=== PATIENT | male | born 1960 | race Caucasian/White ===

== ENCOUNTER 2018-03-04 16:15 | Inpatient (IN) ==
[2018-03-04] MEDS ORDERED: Heparin 10,000 UNITS/10 ML Vial (for IV use) IV.PUSH STA (16:17)
--- NOTE | 2018-03-04 16:28 | ED ---
HPI General Stated Complaint: Stemi Alert Time Seen by Provider: 03/04/18 16:16 Source: patient and EMS Mode of arrival: EMS Limitations: no limitations History of Present Illness HPI narrative: 57-year-old male patient presents to the ER today brought in by EMS, STEMI alert called on the way, he apparently was working out at the gym when he started having substernal chest pains which she currently rates he initially rated at a 9 out of 10. They had given him aspirin nitroglycerin and he is currently rating the chest pain at a 2 out of 10 now. He denies any shortness of breath or other symptoms.He denies any previous problems with the heart or previous chest pains. Related Data Allergies Allergy/AdvReac Type Severity Reaction Status Date / Time No Known Allergies Allergy Unverified 03/04/18 16:17 Review of Systems ROS: all other systems reviewed are negative [facility] Medical History Medical History FH: cholecystectomy (Acute) GERD (gastroesophageal reflux disease) (Acute) HTN (hypertension) (Acute) Social History Social History Recent Travel in [facility] within the Last 8 Weeks: No Recent Out of Country Travel within the Last 8 Weeks: No Exam Narrative Exam Narrative: GENERAL: Well-developed middle-age male patient currently in mild distress. Awake and oriented x3. SKIN: Focused skin assessment warm/dry. HEAD: Atraumatic. Normocephalic. EYES: Pupils equal and round. No scleral icterus. No injection or drainage. ENT: No nasal bleeding or discharge. Mucous membranes pink and moist. NECK: Trachea midline. No JVD. CARDIOVASCULAR: Regular rate and rhythm. No murmur appreciated.Pulses are present and equal bilaterally. RESPIRATORY: No accessory muscle use. Clear to auscultation. Breath sounds equal bilaterally. GASTROINTESTINAL: Abdomen soft, non-tender, nondistended. Hepatic and splenic margins not palpable. MUSCULOSKELETAL: No obvious deformities. No clubbing. No cyanosis. No edema. NEUROLOGICAL: Awake and alert. No obvious cranial nerve deficits. Motor grossly within normal limits. Normal speech. PSYCHIATRIC: Appropriate mood and affect; insight and judgment normal. Medical Decision Making MDM Narrative Medical decision making narrative: EKG is notable for ST elevations in the inferior leads and V6. ST depressions are seen in V1 through V4. This is fairly concerning for an inferior KS. STEMI protocol was initiated in the ER. Heparin was initiated. Case is discussed with Dr. Mabry who accepts the patient for catheterization. Patient admitted to him as well. Medical Screen Exam Complete: Yes Emergency Medical Condition: Yes Differential Diagnosis Differential Diagnosis: STEMI alert Discharge Plan Discharge Details Anticipated Discharge Date: 03/04/18 Physicians Team ED Provider: Shari Sethi Primary Care Provider: UNKNOWN, Status ED Status: With Doctor
[2018-03-04] MEDS ORDERED: Heparin/NS PF Inj 1,500 ML ONE (16:29)
[2018-03-04] MEDS ORDERED: fentaNYL Citrate Inj 100 MCG/2 ML Ampul ONE (16:30)
[2018-03-04] MEDS ORDERED: Sod Chloride 0.9% Inj 1,000 ML IV.SIG SCH (16:30)
[2018-03-04] MEDS ORDERED: Heparin 10,000 UNITS/10 ML Vial (for IV use) ONE (16:30)
--- NOTE | 2018-03-04 16:32 | XR ---
EXAM DATE: 03/04/2018 4:17 PM EDT AGE/SEX: 57 years / Male INDICATIONS: Chest pain, STEMI alert. CLINICAL DATA: This is the patient's initial encounter. Patient reports that signs and symptoms have been present for 1 day and indicates a pain score of 1/10. MEDICAL/SURGICAL HISTORY: None. None. COMPARISON: No prior exams available for comparison. FINDINGS: A single AP view of the chest demonstrates the lungs to be symmetrically aerated without evidence of mass, infiltrate or effusion. Heart enlarged. Mediastinum is prominent. The cardiomediastinal contour s are unremarkable. Osseous structures are intact. CONCLUSION: 1. Cardiomegaly. 2. Mediastinum is prominent. Consider contrasted CT chest. Electronically signed by: Dashawn Queen MD 03/04/2018 4:31 PM EDT
[2018-03-04 16:43] LABS: Baso % (Auto) 0.5 % (0.0-2.0); Eos # (Auto) 0.1 th/mm3 (0.0-0.4); Eos % (Auto) 0.7 % (0.0-4.0); Hematocrit 55.8 % (39.0-51.0); Hemoglobin 19.4 gm/dL (13.0-17.0); Lymph # (Auto) 1.8 th/mm3 (1.0-4.8); Lymph % (Auto) 25.6 % (9.0-44.0); Mean Corpuscular HGB Conc 34.9 % (32.0-36.0); Mean Corpuscular Hemoglobin 29.8 pg (27.0-34.0); Mean Corpuscular Volume 85.6 fL (80.0-100.0); Mono # (Auto) 0.6 th/mm3 (0.0-0.9); Mono % (Auto) 8.6 % (0.0-8.0); Neut # (Auto) 4.5 th/mm3 (1.8-7.7); Neut % (Auto) 64.6 % (16.0-70.0); Platelet Count 179 th/mm3 (150-450); Red Blood Count 6.52 mil/mm3 (4.50-5.90); Red Cell Distribution Width 14.1 % (11.6-17.2); White Blood Count 6.9 th/mm3 (4.0-11.0)
[2018-03-04 17:04] LABS: Activated Partial Thrombo Time 20.2 sec (24.3-30.1); Calcium 8.1 mg/dL (8.5-10.1); INR 1.1 Ratio; Prothrombin Time 11.1 sec (9.8-11.6)
[2018-03-04] MEDS ORDERED: Tirofiban Inj 12,500 MCG/250 ML PLAST..BAG ONE (17:26)
[2018-03-04] MEDS ORDERED: Iohexol 350 MG/ML 100 ML Vial (for Cath Lab) IVCONTRAST ONE (17:30)
[2018-03-04] MEDS ORDERED: Iohexol 350 MG/ML 50 ML Vial (for Cath Lab) IVCONTRAST ONE (17:30)
[2018-03-04 17:38] LABS: Creatine Kinase MB 26.3 ng/mL (0.5-3.6)
[2018-03-04] MEDS ORDERED: Misc Info for Pharmacy OTHER STA (17:44)
[2018-03-04] MEDS ORDERED: TIROFIBAN BOLUS IV.PUSH ONE (17:44)
--- NOTE | 2018-03-04 17:49 | CATHPROC ---
[facility] HIS Report Study Information Study Number Admission Scheduled Start Study Start [id number] Mar 04 2018 4:15PM 03/04/2018 Mar 04 2018 4:31PM [place] [facility] Cardiac Catheterization Admit Source Facility Department Emergency department [facility] Physician and Clinical Staff Initial Adrian Welsh Hand Blockerjacob Mark RN, Milton Carlton,RN Recorder Kathleen Best,RT(R) Scrub Lelo Holloway ,RT(R) Procedures Performed Procedure Location (Site) Vessel Name Coronary Angiograms LCA Left Coronary Coronary Angiograms RCA Right Coronary L Heart Cath LV Gram-hand inj. LV LV Ventricle PTCA ADD ON'S Stent OM2 Prox CIRC Stent RCA Mid Right Coronary Wire insertion Fem Art (right) Femoral Art Equipment Time Departmental Shipping Clerk Description Size Mfg Part Number Used/Scraped [id number] 17:02 [employer] WIRE, ASAHI PROWATER 180CM 180CM Used *[id number] 17:14 [employer] WIRE, ASAHI PROWATER 180CM 180CM Used *[id number] TRANSDUCER, TRUWAVE [id number] 16:33 SUH TRAVIS * Used W/STOCKCOCK *[id number] [id number] *[id number] 538-422 *[id number] *[id number] [id number] *[id number] *[id number] 16:33 [employer] INDUSTRIES BLANKET,WARM AIR CCL * Used *[id number] 16:33 [employer] PACK, CCL CUSTOM * Used *[id number] 16:33 MEDLINE PACER PEN, SKIN DUAL W/ RULER * Used *[id number] 17:22 MEDTRONIC STENT, 3.0 22 INTEGRITY 3.0 22 Used *[id number] 17:05 [employer]TRONIC STENT, 4.0 15 INTEGRITY 4.0 15 Used *[id number] 17:05 [employer] MEDICAL 30 RAVEN INDEFLATOR Used *[id number] 16:57 [employer] MEDICAL SHEATH, FR6.5 PRELUDE 11CM FR 6.5 038ACT Used *[id number] 16:33 [employer] MEDICAL WIRE, 3MMJ .035 180CM 180CM Used *[id number] 16:33 [facility], 4 PORT * Used *[id number] 16:33 [employer] OMNIPAQUE, 350 MG, 150ML 150ML [id number] Used 17:05 [employer]COMED OMNIPAQUE, 350 MG, 50ML 50ML [id number] Used [id number] 16:33 TERUM[employer] MEDICAL SHEATH, FR4 TERUMO (10CM) FR 4 Used *[id number] Equipment Model, Serial, Lot Number and Expiration Data Description Model Number Serial Number Lot Number Expiration Date STENT, 3.0 22 INTEGRITY [id number] 12-15-2018 STENT, 4.0 15 INTEGRITY [id number] 02-21-2019 History: Allergies Allergy Reaction No Known Allergies History: Risk Factors Hypertension Yes History: Symptoms/Diagnosis Selection Items Chest pain History: Stress Tests Stress or Imaging Studies Performed No Labs Hgb (g/dl) Hct (%) RBC (MIL/MM3) WBC (l/cumm) Platelets (thousands) 11.60-17.00 35.00-51.00 4.00-5.90 4.00-11.00 150.00-450.00 19.7 58 6.5 69 179 Glucose (mg/dl) BUN (mg/dl) Creatinine (mg/dl) BUN:Creatinine (1:x) 74.00-106.00 7.00-18.00 0.50-1.30 10.00-20.00 130 16 1.2 13.3 Na (meq/l) K (meq/l) Cl (meq/l) 136.00-145.00 3.50-5.10 98.00-107.00 141 3.5 101 CPK-MB (ng/ML) 0.50-3.60 Not Drawn Medication Medication Total Dose (Bolus/Oral) Medication Total Dosage/Unit 1% XYLOCAINE 20 mL AGGRASTAT BOLUS 46 meq/kg EFFIENT 60 mg FENTANYL 50 mcg HEPARIN 6900 units VERSED 2 mg Medications (Bolus/Oral) Medication Time Given Dosage/Unit Administered By Reason VERSED 03/04/2018 4:58:53 PM 1 mg Milton Kaplan 1 mg VERSED given in lab by Milton Kaplan RN in Left Antecubital via Peripheral IV. 1% XYLOCAINE 03/04/2018 4:59:23 PM 20 mL Adrian Mabry 20 mL 1% XYLOCAINE given in lab by Adrian Mabry in Right Groin via Subcutaneous. FENTANYL 03/04/2018 4:59:30 PM 25 mcg Rosaura, Milton 25 mcg FENTANYL given in lab by Milton Kaplan RN in Left Antecubital via Peripheral IV. VERSED 03/04/2018 5:00:58 PM 1 mg Milton Kaplan 1 mg VERSED given in lab by Milton Kaplan RN via Peripheral IV. FENTANYL 03/04/2018 5:01:03 PM 25 mcg Rosaura, Milton 25 mcg FENTANYL given in lab by Milton Kaplan RN via Peripheral IV. HEPARIN 03/04/2018 5:06:17 PM 5400 units Rosaura, Milton 5400 units HEPARIN given in lab by Milton Kaplan RN via Peripheral IV. HEPARIN 03/04/2018 5:18:40 PM 1500 units Rosaura, Milton 1500 units HEPARIN given in lab by Milton Kaplan RN via Peripheral IV. AGGRASTAT BOLUS 03/04/2018 5:30:34 PM 46 meq/kg Milton Kaplan 46 meq/kg AGGRASTAT BOLUS given in lab by Milton Kaplan RN via Peripheral IV. Amount given = 4181.4 m eq. EFFIENT 03/04/2018 5:31:59 PM 60 mg David Mark RN 60 mg EFFIENT given in lab by David Mark RN via Oral. Medication (Drip) Medication Time Given Dosage/Unit Concentration/Unit Diluent (ml) Solution AGGRASTAT DRIP 03/04/2018 5:34:44 PM 0.149 mcg/kg/min 12.5 mg 250 NaCl .9 0.149 mcg/kg/min AGGRASTAT DRIP given in lab by Milton Kaplan RN via Peripheral IV. Pump/Drip Flow = 16.3 ml/hr using NaCl .9 with a concentration of 12.5 mg in 250 ml. Ordered by Adrian Mabry. IV Bolus 03/04/2018 5:13:44 PM 250 mL (Bolus) 250 NaCl .9 250 mL (Bolus) IV Bolus given in lab by Milton Kaplan RN via Peripheral IV. Using NaCl .9. IV Solutions 03/04/2018 4:43:25 PM 0 mL (IV) 1000 NaCl .9 Patient arrived on IV Solutions in Left Antecubital via Peripheral IV. Pump/Drip Flow = 20 ml/hr usin g NaCl .9. Initial Case Assessment Cardiovascular HR Rhythm NIBP Chest Pain 90 reg 153/92 0 Edema Present Skin color Skin None Normal Warm Circulatory - Right Pulses Dorsalis Pedis Femoral 3 3 Scale (0,1,2,3,4,d) Circulatory - Left Pulses Dorsalis Pedis Femoral 3 3 Scale (0,1,2,3,4,d) Circulatory - Lower Extremities Color Lower Right Color Lower Left Normal Normal Neurological State Oriented to time-place- Alert Moves all extremities person Respiration - General Respiration Rate SpO2 (%) O2 (lpm) (B/min) 19 95 0 Final Case Assessment Cardiovascular HR Rhythm NIBP Chest Pain 71 reg 129/82 0 Edema Present Skin color Skin None Normal Warm Circulatory - Right Pulses Dorsalis Pedis Femoral 3 3 Scale (0,1,2,3,4,d) Circulatory - Left Pulses Dorsalis Pedis Femoral 3 3 Scale (0,1,2,3,4,d) Circulatory - Lower Extremities Color Lower Right Color Lower Left Normal Normal Neurological State Oriented to time-place- Alert Moves all extremities person Respiration - General Respiration Rate SpO2 (%) O2 (lpm) (B/min) 13 97 0 Chronological Log Time Study Chronological Log 16:25:30 Emergency Room notified that [facility] is ready. 16:36:54 Patient Name, D.O.B, / Armband Verified By R.N. 16:37:41 Pre-op and post- op instructions given; patient acknowledges understanding of instructions. 16:37:43 Verbal Stimulation=2 Physical Stimulation=2 Airway=2 Respiration=2 TOTAL=8. (0=absent, 1=li mited, 2=present) 16:37:53 Patient arrived via Bed. 16:38:03 Skin Breakdown-none 16:38:10 A # 20 IV was noted in the Forearm (right). Grade = 0 Vitals capture started with the following parameters, Patient=Adult, Interval=5 min, Initial Pr hljpcc=797 mmHg, 16:41:02 Deflation Rate=5 mmHg, Cuff placed on Left Arm 16:42:04 Vitals capture stopped. 16:43:18 A # 18 IV was noted in the Antecubital (left). Grade = 0 16:43:25 Patient arrived on IV Solutions in Left Antecubital via Peripheral IV. Pump/Drip Flow = 20 ml/hr using NaCl .9. 16:43:51 HR=94 bpm, MGTG=263/89 mmhg, SpO2=95.0 %, Resp=16 B/min, Pain=0, Julio=10, Roth=2 16:43:54 Reference ECG taken 16:46:10 Pressure channel 1 zeroed. 16:47:56 HR=91 bpm, HJVV=068/92 mmhg, SpO2=95.0 %, Resp=20 B/min, Pain=0, Julio=10, Roth=2 Assessment: Initial Case, HR=90 BPM, Rhythm=reg, THUB=246/92 mmhg, Chest Pain=0, Edema=None, Co mor=Normal, Skin = Warm Right Pulses: Rigoberto Ped=3, Femoral=3 Left Pulses: Rigoberto Ped=3, Femoral=3 16:49:07 Lower Right Extremities: Color=Normal Lower Left Extremities: Color=Normal Neurological: State=Alert, Ox3, TIDWELL Respiration: Resp=19 B/min, SpO2=95 %, O2=0 lpm 16:49:30 MD paged 16:49:55 History and physical on the chart or being dictated. 16:51:00 Bilateral groins prepped with 2% chlorhexidine, and draped after a 3 minute waiting time. 16:52:51 HR=88 bpm, ZZOD=481/89 mmhg, SpO2=95.0 %, Resp=13 B/min, Pain=0, Julio=10, Roth=2 pt received 3600 units of heparin in er 16:56:06 pt received 324 mg of ASA in er 16:57:38 MD arrived. Time Out. Correct patient, correct procedure, correct physician, labs, allergies, and equipment verified with circus laborer 16:57:42 team present. Fire risk assesment completed (see hard stop sheet for coding). Time Out Conc urred by MD and individual staff in procedure. 16:57:54 HR=88 bpm, UALW=995/93 mmhg, SpO2=93.0 %, Resp=13 B/min, Pain=0, Julio=10, Roth=2 16:58:20 Case Start 16:58:22 Verbal Stimulation=2 Physical Stimulation=2 Airway=2 Respiration=2 TOTAL=8. (0=absent, 1=li adin, 2=present) 16:58:53 1 mg VERSED given in lab by Milton Kaplan RN in Left Antecubital via Peripheral IV. 16:59:23 20 mL 1% XYLOCAINE given in lab by Adrian Mabry in Right Groin via Subcutaneous. 16:59:30 25 mcg FENTANYL given in lab by Milton Kaplan RN in Left Antecubital via Peripheral IV. 17:00:58 1 mg VERSED given in lab by Milton Kaplan RN via Peripheral IV. 17:01:03 25 mcg FENTANYL given in lab by Milton Kaplan RN via Peripheral IV. 17:01:11 Access site was Right Femoral Artery. 17:01:15 A wire was inserted via Fem Art (right). 17:01:17 A SHEATH, FR6.5 PRELUDE 11CM FR 6.5 was advanced into the Fem Art (right) using the Percuta neous technique. 17:01:35 Activated Clotting Time Drawn A JR 4.0 GUIDE CATHETER FR 6 was advanced over a wire. OMNIPAQUE, 350 MG, 150ML 150ML was used for 17:01:49 injections. 17:03:02 HR=83 bpm, TQPX=802/72 mmhg, SpO2=93.0 %, Resp=10 B/min, Pain=0, Julio=10, Roth=2 Recorded Pressure: Ao, HR=84, Condition=Condition 1 17:03:15 (Aorta) Ao 100/71/86 17:03:25 The RCA was injected and visualized at various angles. OMNIPAQUE, 350 MG, 150ML 150ML used . Recorded Pressure: Ao, HR=74, Condition=Condition 1 17:03:48 (Aorta) Ao 97/67/80 17:04:30 OMNIPAQUE, 350 MG, 50ML 50ML and 30 RAVEN INDEFLATOR added. 17:04:44 A WIRE, [employer] PROWATER 180CM 180CM was inserted via Fem Art (right). 17:05:39 ACT (Normal Range 90-180) = 151 17:06:10 Interventional wire has crossed the lesion 17:06:17 5400 units HEPARIN given in lab by Milton Kaplan RN via Peripheral IV. An STENT, 4.0 15 INTEGRITY 4.0 15 Bare Metal Stent was inserted through a JR 4.0 GUIDE CATHETER FR 6 over a 17:06:48 WIRE, Dialoggy 180CM 180CM. A STENT, 4.0 15 INTEGRITY 4.0 15 was deployed using a 30 RAVEN INDEFLATOR at 17 atmospheres for 1 7 seconds in 17:07:22 the RCA Mid. 17:07:57 Delivery device removed 17:07:59 HR=81 bpm, PQHS=989/72 mmhg, SpO2=90.0 %, Resp=18 B/min, Pain=0, Julio=10, Roth=2 17:08:10 The RCA was injected and visualized at various angles. OMNIPAQUE, 350 MG, 150ML 150ML used . 17:08:39 Wire removed 17:08:42 guide Catheter was removed A JR 4.0 INFINITI CATHETER FR 4 was advanced over a wire. OMNIPAQUE, 350 MG, 150ML 150ML was us ed for 17:09:19 injections. Recorded Pressure: LV, HR=76, Condition=Condition 1 17:10:49 (Left Ventricle) LV 94/1/6 Recorded Pressure: LV, Ao, HR=78, Condition=Condition 1 17:11:02 (Left Ventricle) LV 110/-26/5, (Aorta) Ao ?/?/? 17:11:28 The LV was manually injected with 10 cc's and visualized. OMNIPAQUE, 350 MG, 150ML 150ML us ed. 17:11:37 Catheter was removed A JL 4.0 INFINITI CATHETER FR 4 was advanced over a wire. OMNIPAQUE, 350 MG, 150ML 150ML was us ed for 17:11:41 injections. 17:11:49 Catheter was removed A JL 5.0 INFINITI CATHETER FR 4 was advanced over a wire. OMNIPAQUE, 350 MG, 150ML 150ML was us ed for 17:11:52 injections. 17:12:44 Activated Clotting Time Drawn 17:12:58 HR=71 bpm, KXYZ=018/77 mmhg, SpO2=95.0 %, Resp=9 B/min, Pain=0, Julio=10, Roth=2 17:13:44 250 mL (Bolus) IV Bolus given in lab by Milton Kaplan, RN via Peripheral IV. Using NaCl .9. 17:14:12 The LCA was injected and visualized at various angles. OMNIPAQUE, 350 MG, 150ML 150ML used . After removing the current catheter a XB 4.0 GUIDE CATHETER FR 6 was advanced over a WIRE, 3MMJ .035 180CM 17:14:30 180CM. 17:17:04 A WIRE, ASAHI PROWATER 180CM 180CM was inserted via Fem Art (right). 17:17:54 ACT (Normal Range 90-180) = 234 17:17:59 HR=74 bpm, WDZD=280/67 mmhg, SpO2=94.0 %, Resp=9 B/min, Pain=0, Julio=10, Roth=2 17:18:40 1500 units HEPARIN given in lab by Milton Kaplan, RN via Peripheral IV. 17:18:59 reperfusion 17:19:12 Interventional wire has crossed the lesion 17:22:58 HR=70 bpm, AIER=363/78 mmhg, SpO2=95.0 %, Resp=14 B/min, Pain=0, Julio=10, Roth=2 An STENT, 3.0 22 INTEGRITY 3.0 22 Bare Metal Stent was inserted through a XB 4.0 GUIDE CATHETER FR 6 over a 17:23:12 WIRE, ASAHI PROWATER 180CM 180CM. A STENT, 3.0 22 INTEGRITY 3.0 22 was deployed using a 30 RAVEN INDEFLATOR at 17 atmospheres for 1 5 seconds in 17:23:45 the OM2 Prox. 17:24:32 Delivery device removed 17:24:59 The LCA was injected and visualized at various angles. OMNIPAQUE, 350 MG, 150ML 150ML used . 17:25:45 Wire removed 17:25:56 guide Catheter was removed Assessment: Final Case, HR=71 BPM, Rhythm=reg, YUAP=163/82 mmhg, Chest Pain=0, Edema=None, [place] r=Normal, Skin = Warm Right Pulses: Rigoberto Ped=3, Femoral=3 Left Pulses: Rigoberto Ped=3, Femoral=3 17:27:13 Lower Right Extremities: Color=Normal Lower Left Extremities: Color=Normal Neurological: State=Alert, Ox3, TIDWELL Respiration: Resp=13 B/min, SpO2=97 %, O2=0 lpm 17:27:59 HR=70 bpm, ZAXC=532/82 mmhg, SpO2=96.0 %, Resp=16 B/min, Pain=0, Julio=10, Roth=2 17:30:34 46 meq/kg AGGRASTAT BOLUS given in lab by Milton Kaplan RN via Peripheral IV. Amount given = 4181.4 meq. 17:31:59 60 mg EFFIENT given in lab by David Mark RN via Oral. 17:32:35 In the Fem Art (right) the SHEATH, FR6.5 PRELUDE 11CM FR 6.[address] by Lelo Prieto RT(R) . 17:32:45 Case End (Physician broke scrub) 17:32:46 Sterile dressing applied to site 17:32:47 No case complications noted. 17:32:48 Cine recording checked. 17:32:49 Bedside Report will be given. 17:32:51 Implantable Device card placed in patient's chart. 17:32:55 A Left Heart Cath was performed. 17:33:01 Clinical correlaton risk stratification. 17:33:02 HR=69 bpm, VVXN=802/75 mmhg, SpO2=96.0 %, Resp=13 B/min, Pain=0, Julio=10, Roth=2 0.149 mcg/kg/min AGGRASTAT DRIP given in lab by Milton Kaplan RN via Peripheral IV. Pump/Drip Flow = 16.3 ml/hr 17:34:44 using NaCl .9 with a concentration of 12.5 mg in 250 ml. Ordered by Adrian Mabry. 17:37:57 HR=69 bpm, GVQK=245/79 mmhg, SpO2=97.0 %, Resp=17 B/min, Pain=0, Julio=10, Roth=2 17:38:46 ACT (Normal Range 90-180) = 365 17:42:24 Vitals capture stopped. End Study - Contrast Media Used In Study Contrast Total Opened (mL) Total Used (mL) Total Wasted (mL) Omnipaque 120 120 0 End Study - Maximum Contrast Load Max Contrast Load (mL) 378.8 End Study - Radiation Exposure Fluoro Time (minutes) 5.8 End Study - Patient Disposition Complications Transferred To Interventional Outcome No Critical Care Bed successful
[2018-03-04] MEDS ORDERED: Tirofiban Inj 12,500 MCG/250 ML PLAST..BAG IV.CONT SCH (18:00)
[2018-03-04 18:06] LABS: CKMB Percent 7.4 % (0.0-4.0); Troponin I 1.12 ng/mL (0.02-0.05)
--- NOTE | 2018-03-04 21:53 | MR ---
cc: Adrian Mabry MD DATE: 03/04/2018 PROCEDURE PERFORMED: Left heart catheterization, left ventriculography, coronary angiography, direct percutaneous coronary intervention with a bare-metal stent of the mid right coronary artery and direct percutaneous coronary intervention with a bare-metal stent of the proximal second obtuse marginal vessel. INDICATION: STEMI, inferior posterior injury pattern on EKG, coronary artery disease. DESCRIPTION OF PROCEDURE: The patient was brought to the cardiac catheterization laboratory, prepped and draped in the usual sterile fashion. Then, 10 mL of 1% lidocaine was used to locally anesthetize the right common femoral artery. The patient was pain free when he came to the labor relations teacher. He had received aspirin and heparin in the ER. As he had an inferior posterior injury pattern, I suspected that the culprit was the right coronary artery. We went in with a 6 Turkish JR4 guide. He had a 75% mid right coronary artery stenosis and a 70% ostial proximal right PDA stenosis. The right coronary was a large vessel with a reference vessel diameter of up to 5 mm in the proximal segment. I placed a 4.0 x 15 Integrity stent to 17 atmospheres for 20 seconds. The stent was still slightly under deployed in the mid segment, but the stenosis went from 75% to 0% with DENVER 3 flow. We then proceeded to image the left ventricle and left coronary artery system with 4 Turkish JR4 and JL5 catheters with the following findings: The LV pressure 110/5-6, EF 60%. The posterior wall and mid inferior wall appeared to be at least mildly hypokinetic. The left main coronary artery had no significant disease angiographically. There were 2 very small obtuse marginal vessels in the proximal segment with a 1 mm reference vessel diameter. The third obtuse marginal vessel was occluded at the ostium. The remainder of the AV groove of the left circumflex vessel was a small vessel, 1.5 mm in diameter and gives off a distal posterolateral artery which bifurcates into 2 small 1.0 mm vessels with no significant obstructive disease. The LAD was transapical and was very tortuous in the mid to distal segment with mild disease up to 30% angiographically. There was a very large first diagonal vessel which was probably a reference vessel diameter of at least 3.75 to 4 mm with a long 90% stenosis in the proximal segment. There did appear to be a normal-appearing ostial segment. Prior to both interventions, the initial ACT was 165 and an additional 16 units/kg of heparin was given. Second ACT was 235 and an additional 1500 units of heparin was given. Final ACT was 365. A 6 Turkish 4.0 XB guide was placed into the left main coronary artery across the third obtuse marginal vessel stenosis with a 0.014 P[place]ater guidewire. This resulted in reestablishment of flow. There was a long 20 mm length stenosis spanning to small to medium size marginal vessels. I placed a 3.0 x 22 Integrity stent across the lesion site with 1 inflation of 17 atmospheres for 20 seconds. The stenosis went from 100% with DNEVER 0 flow to 0% with DENVER 3 flow. Note, flow was DENVER 3 in both jailed branches off the third marginal vessel. The more medial branch had an ostial 95% stenosis. The more lateral of the branches had a 60% stenosis, but the more medial branch was about 2 mm in diameter and the more lateral branch was 2.5 mm in diameter. The patient was chest pain free at the end of the procedure. CONCLUSION: 1. ST elevation myocardial infarction with inferior posterior injury pattern, culprit occluded proximal third obtuse marginal vessel. 2. Otherwise, severe 3-vessel coronary artery disease in a right dominant system. 3. Successful direct primary percutaneous coronary intervention with a bare-metal stent of the ostial proximal third obtuse marginal vessel from 100% with DENVER 0 flow to 0% with DENVER 3 flow. 4. Successful direct percutaneous coronary intervention with a bare-metal stent of the mid right coronary artery from 75% to 0% with DENVER 3 flow. Note, this vessel was intervened on first as the electrocardiogram showed an inferior posterior injury pattern and it was thought this was the culprit lesion. 5. Recommend Effient 60 mg p.o. load, then 10 mg daily for 12-15 months, aspirin 162 mg daily indefinitely, Aggrastat drip. Treat his lipids per NCEP guidelines. We will start a beta-alex and angiotensin-converting enzyme inhibitor as hemodynamically tolerated. Note, I have already told the patient to abstain from any supplements as he is severely polycythemic with a hemoglobin above 19 and admits to taking multiple supplements including testosterone, again which I have told him to completely abstain from in the future from a cardiovascular standpoint. Adrian Mabry MD AWC/jl , 05:42 PM , 05:56 PM
--- NOTE | 2018-03-04 22:10 | MB ---
cc: Adrian Mabry MD DATE: 03/04/2018 HISTORY OF PRESENT ILLNESS: Mr. 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 STEMI alert was called. The patient was given aspirin and heparin in the ER. He was chest pain free upon arrival in the [facility]. Otherwise, denies any fevers, chills, cough, GI or bleeding, PND, orthopnea or dizziness, chest pain was rated to be 9/10 on arrival to the ER, 2/10 on transfer from the ER to the [facility]. PAST MEDICAL HISTORY: Includes cholecystectomy, gastroesophageal reflux disease, hypertension. ALLERGIES: NONE. MEDICATIONS: We will continue medications cardiac. SOCIAL HISTORY: He smokes every day. Drinks alcohol 3-4 times a month. Medications given in the ER aspirin. PHYSICAL EXAMINATION: Heparin. VITAL SIGNS: Temperature 98.3, pulse 88, blood pressure 187/98, respiratory rate 20, saturations 97% on room air. GENERAL: He is alert and oriented x3, in no acute distress. NECK: Supple. No JVD or bruit. CARDIOVASCULAR: S1, S2. No murmurs, rubs or gallops discussed as well. ABDOMEN: Soft, nontender, nondistended with positive bowel sounds. EXTREMITIES: No extremity edema. A CT of the chest shows cardiomegaly. Mediastinum is prominent clinically. Consider contrast CT chest. LABORATORY DATA: EKG shows an inferior posterior injury pattern. Normal sinus rhythm at 87 beats per minute. Also, lateral ST elevation, probably lead reversal between I and aVL with ST depression . This will probably has actually ST elevation if the leads were in proper position. White count 6.9, hemoglobin 19.7, hematocrit 55.8, platelet count 179. INR is 1.1. Sodium 141, potassium 3.5, chloride 101, bicarbonate 16, creatinine 1.2, calcium 8.1, CK 357. Troponin pending. BNP 15. DIAGNOSES: 1. Non-ST elevation myocardial infarction. 2. Polycythemia. 3. Hypokalemia. 4. Hyperglycemia. 5. Tobacco abuse. DISCUSSION: At this point in time, STEMI alert has been called. PLAN: Emergent left heart catheterization and primary PCI. Strongly advised the patient to stop smoking and to avoid all supplements from a cardiovascular standpoint. Further recommendations based on the details of his coronary anatomy. MD REINIER Manriquez/karissa , 06:03 PM , 06:11 PM
[2018-03-05] MEDS ORDERED: Atropine Inj 1 MG/10 ML Syringe ONE (00:04)
[2018-03-05 04:25] LABS: Baso % (Auto) 0.4 % (0.0-2.0); Eos % (Auto) 0.1 % (0.0-4.0); Hematocrit 54.3 % (39.0-51.0); Hemoglobin 18.3 gm/dL (13.0-17.0); Lymph # (Auto) 1.5 th/mm3 (1.0-4.8); Lymph % (Auto) 16.1 % (9.0-44.0); Mean Corpuscular HGB Conc 33.8 % (32.0-36.0); Mean Corpuscular Volume 85.8 fL (80.0-100.0); Mean Platelet Volume 7.8 fL (7.0-11.0); Mono # (Auto) 0.6 th/mm3 (0.0-0.9); Mono % (Auto) 6.4 % (0.0-8.0); Neut # (Auto) 7.4 th/mm3 (1.8-7.7); Platelet Count 178 th/mm3 (150-450); Red Blood Count 6.32 mil/mm3 (4.50-5.90); Red Cell Distribution Width 14.2 % (11.6-17.2); White Blood Count 9.6 th/mm3 (4.0-11.0)
[2018-03-05 04:46] LABS: Albumin 3.3 g/dL (3.4-5.0); Calcium 7.5 mg/dL (8.5-10.1); Carbon Dioxide 26.1 meq/L (21.0-32.0); Potassium 3.5 meq/L (3.5-5.1)
[2018-03-05 05:01] LABS: Chol/HDL Ratio 3.93 Ratio; HDL Cholesterol 45.5 mg/dL (40.0-60.0); Total Protein 6.2 g/dL (6.4-8.2)
[2018-03-05 05:33] LABS: Creatine Kinase MB 406.3 ng/mL (0.5-3.6)
[2018-03-05 05:37] LABS: CKMB Percent 25.1 % (0.0-4.0)
[2018-03-05] MEDS: Ramipril 2.5 MG Capsule PO SCH (08:57)
--- NOTE | 2018-03-05 12:34 | P.HP ---
History of Present Illness Primary Care Physician: UNKNOWN History of Present Illness: 57-year-old male with a history of GERD presented to the ER yesterday afternoon after he experienced severe central chest pain with associated shortness of breath and diaphoresis that occurred approximately 11:30 AM at the gym. He drove home but the pain did not subside and his girlfriend convinced him to call 911. In the ER he demonstrated significant elevations in his troponin level, combined with symptoms of continuing chest pain he was determined to be an urgent need of cardiac catheterization. He was taken to the [facility] approximately 3 PM yesterday and had immediate relief from the procedure. He denies any history of prior weakness or shortness of breath. 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 He denies any recent fevers, denies upper respiratory infection, denies dysuria. He denies any nausea, vomiting, or diarrhea. Inpatient Certification: I certify that the inpatient services were ordered in accordance with Medicare regulations governing the order. This includes certification that hospital inpatient services are reasonable and necessary and in the case of services not specified as inpatient-only under 42 CFR 419.22(n), that they are appropriately provided as inpatient services in accordance to with the 2-midnight benchmark under 43 CFR 412.3(e) Estimated Total Length of Stay (Days): 2 Plans for Post Hospital Care: Home Review of Systems All other systems reviewed negative except as stated in HPI [facility] - History History Provided By: Patient - Medical History Medical History: Medical History (Last Reviewed 03/04/18 @ 16:53 by Juanis Burton) FH: cholecystectomy GERD (gastroesophageal reflux disease) HTN (hypertension) - Family History Family History: Family History (Last Updated 03/05/18 @ 12:28 by Rigo Angelo MD) Other Hypertension - Tobacco History Second Hand Smoke Exposure: Yes Tobacco Use In Past 30 Days: Yes Smoking Status: Current every day smoker Tobacco Type: Cigars - Alcohol History How Often Do You Have a Drink Containing Alcohol: 2 to 4 times a month - Substance Use History Substance History: No History of Abuse - Travel History Recent Travel in the [place] Within the Last 8 Weeks: No Recent Travel Out of the Country Within the Last 8 Weeks: No - Immunization History Tetanus Immunization: Unable to Assess Hx Influenza Vaccine This Season: Unable to Assess Medications and Allergies Active Medications: Active Medications Aspirin (Aspirin Chew) 162 mg PO DAILY [facility] Last Admin: 03/05/18 08:56 Dose: 162 mg Atorvastatin Calcium (Lipitor) 10 mg PO HS [facility] Last Admin: 03/04/18 21:03 Dose: 10 mg Carvedilol (Coreg) 3.125 mg PO BID [facility] Last Admin: 03/05/18 08:57 Dose: 3.125 mg Sodium Chloride (Ns Inj) 1,000 mls @ 30 mls/hr IV.SIG .Q24H [facility] Stop: 03/05/18 16:29 Last Admin: 03/04/18 16:29 Dose: 30 mls/hr Tirofiban/Sodium Chloride (Aggrastat Inj) 12,500 mcg in 250 mls @ 0 mls/hr IV.CONT .Q0M [facility]; Protocol Prasugrel (Effient) 10 mg PO DAILY [facility] Last Admin: 03/05/18 08:56 Dose: 10 mg Ramipril (Altace) 2.5 mg PO DAILY [facility] Last Admin: 03/05/18 08:57 Dose: 2.5 mg Sodium Chloride (Ns Flush) 2 ml IV.FLUSH BID [facility] Last Admin: 03/05/18 08:57 Dose: 2 ml Sodium Chloride (Ns Flush) 2 ml IV.FLUSH PRN PRN PRN Reason: FLUSH AFTER USING IV ACCESS Allergies Allergy/AdvReac Type Severity Reaction Status Date / Time No Known Allergies Allergy Verified 03/04/18 17:18 Home Medications Medication Instructions Recorded Confirmed Type Unable to Obtain Home Meds 03/04/18 03/04/18 History Exam Vital signs: Vital Signs 03/04/18 16:15 03/04/18 16:17 03/04/18 18:00 Temperature 98.3 F 97.9 F Pulse Rate 88 74 Respiratory Rate 20 18 Blood Pressure 187/98 H 141/75 H Pulse Oximetry 97 97 98 03/04/18 18:22 03/04/18 20:00 03/05/18 00:00 Temperature 98.4 F Pulse Rate 74 70 Respiratory Rate 20 18 Blood Pressure 136/79 102/62 Pulse Oximetry 96 96 94 L 03/05/18 04:00 03/05/18 07:00 03/05/18 08:00 Temperature 98.2 F 98.3 F Pulse Rate 70 80 74 Respiratory Rate 16 18 Blood Pressure 119/77 133/87 Pulse Oximetry 95 97 03/05/18 09:00 03/05/18 10:00 03/05/18 10:57 Temperature 97.7 F Pulse Rate 78 84 74 Respiratory Rate 18 Blood Pressure 127/84 Pulse Oximetry 96 03/05/18 11:00 03/05/18 12:00 Temperature Pulse Rate 70 68 Respiratory Rate Blood Pressure Pulse Oximetry 96 Intake & Output 03/04/18 03/05/18 03/05/18 18:59 06:59 18:59 Intake Total 1490 / 1490 250 / 250 Output Total 800 / 800 1850 / 1850 Balance -790 / -790 -360 / -360 250 / 250 Weight 90.718 kg 87.5 kg Intake: IV 250 / 250 Heparin/NS PF Inj 1,500 ML @ 0 10 mls/hr .ROUTE .[employer] Rx#: [id number] Oral 490 / 490 Other 1000 / 1000 Output: Urine 800 / 800 1850 / 1850 Other: Other Intake Source Saline Solution Date of Last Bowel Movement 03/04/18 # Bowel Movements 0 Narrative: GENERAL: AAOx3, no acute distress, adequate nutrition SKIN: Warm and dry, no rashes. HEAD: Atraumatic. Normocephalic. EYES: Pupils equal, round, reactive to light. No scleral icterus. No injection or drainage. ENT: No nasal bleeding or discharge. Moist mucous membranes. Nonerythematous oropharynx. NECK: Trachea midline. No JVD. Thyroid size within normal limits. CARDIOVASCULAR: Regular rate and rhythm. 1/6 systolic ejection murmur, no gallops, no rubs. RESPIRATORY: Clear and equal to auscultation bilaterally. No crackles, no wheezes. No accessory muscle use. GASTROINTESTINAL: Abdomen soft, non-tender, nondistended, normal active bowel sounds. Hepatic and splenic margins not palpable. MUSCULOSKELETAL: Extremities without clubbing or cyanosis. No obvious deformities. No edema. NEUROLOGICAL: Awake and alert. No obvious cranial nerve deficits. Motor grossly within normal limits. No focal deficits. Five out of 5 muscle strength in the arms and legs. Normal speech. PSYCHIATRIC: Appropriate mood and affect; insight and judgment normal. Results - Labs CBC & Chem 7: 03/05/18 03:49 03/05/18 03:49 Labs: Laboratory Results - last 24 hr 03/04/18 03/04/18 03/04/18 16:24 16:24 16:24 WBC 6.9 RBC 6.52 H Hgb 19.4 H POC Hgb (Calc) 19.7 H Hct 55.8 H POC Hct 58.0 H MCV 85.6 MCH 29.8 MCHC 34.9 RDW 14.1 Plt Count 179 MPV 8.0 Neut % (Auto) 64.6 Lymph % (Auto) 25.6 [place] % (Auto) 8.6 H Eos % (Auto) 0.7 Baso % (Auto) 0.5 Neut # (Auto) 4.5 Lymph # (Auto) 1.8 [place] # (Auto) 0.6 Eos # (Auto) 0.1 Baso # (Auto) 0.0 WBC Differential . Differential Comment Auto diff final PT 11.1 INR 1.1 APTT 20.2 L POC Sodium 141 Sodium POC Potassium 3.5 L Potassium POC Chloride 101 L Chloride Carbon Dioxide Anion Gap POC BUN 16 BUN Creatinine POC Creatinine 1.2 Estimated GFR POC Glucose 130 H Random Glucose Calcium 8.1 L Magnesium 2.0 Total Bilirubin Direct Bilirubin Indirect Bilirubin AST ALT Alkaline Phosphatase Total Creatine Kinase 357 H CK-MB (CK-2) 26.3 H CK-MB (CK-2) % 7.4 H* Troponin I 1.12 H* B-Natriuretic Peptide Total Protein Albumin Triglycerides Cholesterol LDL Cholesterol, Calc HDL Cholesterol Cholesterol/HDL Ratio 03/04/18 03/05/18 03/05/18 16:24 03:49 03:49 WBC 9.6 RBC 6.32 H Hgb 18.3 H POC Hgb (Calc) Hct 54.3 H POC Hct MCV 85.8 MCH 29.0 MCHC 33.8 RDW 14.2 Plt Count 178 MPV 7.8 Neut % (Auto) 77.0 H Lymph % (Auto) 16.1 [place] % (Auto) 6.4 Eos % (Auto) 0.1 Baso % (Auto) 0.4 Neut # (Auto) 7.4 Lymph # (Auto) 1.5 [place] # (Auto) 0.6 Eos # (Auto) 0.0 Baso # (Auto) 0.0 WBC Differential . Differential Comment Auto diff final PT INR APTT POC Sodium Sodium 144 POC Potassium Potassium 3.5 POC Chloride Chloride 110 H Carbon Dioxide 26.1 Anion Gap 8 POC BUN BUN 12 Creatinine 1.03 POC Creatinine Estimated GFR 74 L POC Glucose Random Glucose 97 Calcium 7.5 L Magnesium Total Bilirubin 2.2 H Direct Bilirubin 0.4 H Indirect Bilirubin 1.8 H AST 335 H ALT 96 H Alkaline Phosphatase 64 Total Creatine Kinase 1617 H CK-MB (CK-2) 406.3 H CK-MB (CK-2) % 25.1 H* Troponin I B-Natriuretic Peptide 15 Total Protein 6.2 L Albumin 3.3 L Triglycerides 91 Cholesterol 179 LDL Cholesterol, Calc 115 H HDL Cholesterol 45.5 Cholesterol/HDL Ratio 3.93 - Imaging Impressions Chest X-Ray 03/04/18 16:17 CONCLUSION: 1. Cardiomegaly. 2. Mediastinum is prominent. Consider contrasted CT chest. Caprini VTE Risk Assessment Caprini VTE Risk Assessment: Moderate/High Risk (score >= 2) Caprini Risk Assessment Model: Point Value = 1 Point Value = 2 Point Value = 3 Point Value = 5 Age 41-60 Minor surgery BMI > 25 kg/m2 Swollen legs Varicose veins or History of unexplained or recurrent spontaneous Oral contraceptives or hormone replacement Sepsis (< 1 month) Serious lung disease, including pneumonia (< 1 month) Abnormal pulmonary function Acute myocardial infarction Congestive heart failure (< 1 month) History of inflammatory bowel disease Medical patient at bed rest Age 61-74 Arthroscopic surgery Major open surgery (> 45 min) Laparoscopic surgery (> 45 min) Malignancy Confined to bed (> 72 hours) Immobilizing plaster cast Central venous access Age >= 75 History of VTE Family history of VTE Factor V Leiden Prothrombin [id number] Lupus anticoagulant Anticardiolipin antibodies Elevated serum homocysteine Heparin-induced thrombocytopenia Other congenital or acquired thrombophilia Stroke (< 1 month) Elective arthroplasty Hip, pelvis, or leg fracture Acute spinal cord injury (< 1 month) Prophylaxis Regimen: Total Risk Factor Score Risk Level Prophylaxis Regimen 0-1 Low Early ambulation 2 Moderate Order ONE of the following: *Sequential Compression Device (SCD) *Heparin 5000 units SQ BID 3-4 Higher Order ONE of the following medications: *Heparin 5000 units SQ TID *Enoxaparin/Lovenox 40 mg SQ daily (WT < 150 kg, CrCl > 30 mL/min) *Enoxaparin/Lovenox 30 mg SQ daily (WT < 150 kg, CrCl > 10-29 mL/min) *Enoxaparin/Lovenox 30 mg SQ BID (WT < 150 kg, CrCl > 30 mL/min) AND/OR *Sequential Compression Device (SCD) 5 or more Highest Order ONE of the following medications: *Heparin 5000 units SQ TID (Preferred with Epidurals) *Enoxaparin/Lovenox 40 mg SQ daily (WT < 150 kg, CrCl > 30 mL/min) *Enoxaparin/Lovenox 30 mg SQ daily (WT < 150 kg, CrCl > 10-29 mL/min) *Enoxaparin/Lovenox 30 mg SQ BID (WT < 150 kg, CrCl > 30 mL/min) AND *Sequential Compression Device (SCD) Assessment and Plan - Plan NSTEMI Patient presented with crushing chest pain, taken to heart catheterization, 2 areas stented 03/04/18 Patient is now symptom-free and asking when he might go home Appreciate timely cardiology intervention GERD Protonix while he is here, resume Prilosec at home Polycythemia Encourage good hydration daily Discharge Planning Possible discharge today if cleared by cardiology
--- NOTE | 2018-03-05 13:59 | P.PNCA ---
Subjective Interval history: assymptomatic, in nad Medications and Allergies Active Medications: Active Medications Aspirin (Aspirin Chew) 162 mg PO DAILY [facility] Last Admin: 03/05/18 08:56 Dose: 162 mg Atorvastatin Calcium (Lipitor) 10 mg PO HS [facility] Last Admin: 03/04/18 21:03 Dose: 10 mg Carvedilol (Coreg) 3.125 mg PO BID [facility] Last Admin: 03/05/18 08:57 Dose: 3.125 mg Sodium Chloride (Ns Inj) 1,000 mls @ 30 mls/hr IV.SIG .Q24H [facility] Stop: 03/05/18 16:29 Last Admin: 03/04/18 16:29 Dose: 30 mls/hr Tirofiban/Sodium Chloride (Aggrastat Inj) 12,500 mcg in 250 mls @ 0 mls/hr IV.CONT .Q0M [facility]; Protocol Prasugrel (Effient) 10 mg PO DAILY [facility] Last Admin: 03/05/18 08:56 Dose: 10 mg Ramipril (Altace) 2.5 mg PO DAILY [facility] Last Admin: 03/05/18 08:57 Dose: 2.5 mg Sodium Chloride (Ns Flush) 2 ml IV.FLUSH BID [facility] Last Admin: 03/05/18 08:57 Dose: 2 ml Sodium Chloride (Ns Flush) 2 ml IV.FLUSH PRN PRN PRN Reason: FLUSH AFTER USING IV ACCESS Allergies Allergy/AdvReac Type Severity Reaction Status Date / Time No Known Allergies Allergy Verified 03/04/18 17:18 Home Medications Medication Instructions Recorded Confirmed Type Unable to Obtain Home Meds 03/04/18 03/04/18 History Physical Exam Vital signs: Vital Signs 03/04/18 16:15 03/04/18 16:17 03/04/18 18:00 Temperature 98.3 F 97.9 F Pulse Rate 88 74 Respiratory Rate 20 18 Blood Pressure 187/98 H 141/75 H Pulse Oximetry 97 97 98 03/04/18 18:22 03/04/18 20:00 03/05/18 00:00 Temperature 98.4 F Pulse Rate 74 70 Respiratory Rate 20 18 Blood Pressure 136/79 102/62 Pulse Oximetry 96 96 94 L 03/05/18 04:00 03/05/18 07:00 03/05/18 08:00 Temperature 98.2 F 98.3 F Pulse Rate 70 80 74 Respiratory Rate 16 18 Blood Pressure 119/77 133/87 Pulse Oximetry 95 97 03/05/18 09:00 03/05/18 10:00 03/05/18 10:57 Temperature 97.7 F Pulse Rate 78 84 74 Respiratory Rate 18 Blood Pressure 127/84 Pulse Oximetry 96 03/05/18 11:00 03/05/18 12:00 Temperature Pulse Rate 70 68 Respiratory Rate Blood Pressure Pulse Oximetry 96 Intake & Output 03/04/18 03/05/18 03/05/18 18:59 06:59 18:59 Intake Total 1490 / 1490 250 / 250 Output Total 800 / 800 1850 / 1850 Balance -790 / -790 -360 / -360 250 / 250 Weight 90.718 kg 87.5 kg Intake: IV 250 / 250 Heparin/NS PF Inj 1,500 ML @ 0 mls/hr .ROUTE .[employer] ONE Rx#: [id number] Oral 490 / 490 Other 1000 / 1000 Output: Urine 800 / 800 1850 / 1850 Other: Other Intake Source Saline Solution Date of Last Bowel Movement 03/04/18 # Bowel Movements 0 Results 03/05/18 03:49 03/05/18 03:49 Cardiac Enzymes 03/04/18 03/04/18 03/05/18 Range/Units 16:24 16:24 03:49 AST 335 H (15-37) U/L CK-MB (CK-2) 26.3 H 406.3 H (0.5-3.6) ng/mL Troponin I 1.12 H* (0.02-0.05) ng/mL B-Natriuretic Peptide 15 (0-100) pg/mL Coagulation 03/04/18 03/04/18 Range/Units 16:24 16:24 PT 11.1 (9.8-11.6) sec APTT 20.2 L (24.3-30.1) sec B-Natriuretic Peptide 15 (0-100) pg/mL Lipids 03/05/18 Range/Units 03:49 Triglycerides 91 (42-150) mg/dL Cholesterol 179 (120-200) mg/dL HDL Cholesterol 45.5 (40.0-60.0) mg/dL Cholesterol/HDL Ratio 3.93 Ratio CBC 03/04/18 03/05/18 Range/Units 16:24 03:49 WBC 6.9 9.6 (4.0-11.0) th/mm3 RBC 6.52 H 6.32 H (4.50-5.90) mil/mm3 Hgb 19.4 H 18.3 H (13.0-17.0) gm/dL Hct 55.8 H 54.3 H (39.0-51.0) % Plt Count 179 178 (150-450) th/mm3 Neut # (Auto) 4.5 7.4 (1.8-7.7) th/mm3 Lymph # (Auto) 1.8 1.5 (1.0-4.8) th/mm3 [place] # (Auto) 0.6 0.6 (0.0-0.9) th/mm3 Eos # (Auto) 0.1 0.0 (0.0-0.4) th/mm3 Baso # (Auto) 0.0 0.0 (0.0-0.2) th/mm3 Comprehensive Metabolic Panel 03/04/18 03/05/18 Range/Units 16:24 03:49 Sodium 144 (136-145) meq/L Potassium 3.5 (3.5-5.1) meq/L Chloride 110 H (98-107) meq/L Carbon Dioxide 26.1 (21.0-32.0) meq/L BUN 12 (7-18) mg/dL Creatinine 1.03 (0.60-1.30) mg/dL Calcium 8.1 L 7.5 L (8.5-10.1) mg/dL Direct Bilirubin 0.4 H (0.0-0.2) mg/dL Indirect Bilirubin 1.8 H (0.0-0.8) mg/dL AST 335 H (15-37) U/L ALT 96 H (12-78) U/L Alkaline Phosphatase 64 (45-117) U/L Total Protein 6.2 L (6.4-8.2) g/dL Albumin 3.3 L (3.4-5.0) g/dL Intake and Output 03/04/18 03/05/18 03/05/18 22:59 06:59 14:59 Intake Total 1490 / 1490 250 / 250 Output Total 800 / 800 1850 / 1850 Balance -790 / -790 -360 / -360 250 / 250 Intake: IV 10 / 10 250 / 250 Heparin/NS PF Inj 1,500 ML @ 0 10 / 10 mls/hr .ROUTE .[employer] ONE Rx#: [id number] Oral 490 / 490 Other 1000 / 1000 Output: Urine 800 / 800 1850 / 1850 Other: Other Intake Source Saline Solution Date of Last Bowel Movement 03/04/18 # Bowel Movements 0 Weight 90.718 kg 87.5 kg - Imaging and Cardiology Imaging: Impressions Chest X-Ray 03/04/18 16:17 CONCLUSION: 1. Cardiomegaly. 2. Mediastinum is prominent. Consider contrasted CT chest. Assessment and Plan - Assessment (1) CAD (coronary artery disease) Code(s): I25.10 - Atherosclerotic heart disease of [place] coronary artery without angina pectoris Status: Acute (2) CAD (coronary artery disease) Code(s): I25.10 - Atherosclerotic heart disease of [place] coronary artery without angina pectoris Status: Acute (3) Tobacco abuse Code(s): Z72.0 - Tobacco use Status: Acute (4) Tobacco abuse Code(s): Z72.0 - Tobacco use Status: Acute (5) HTN (hypertension) Code(s): I10 - Essential (primary) hypertension Status: Acute (6) Polycythemia Code(s): D75.1 - Secondary polycythemia Status: Acute (7) Mediastinal widening Code(s): R93.89 - Abnormal findings on diagnostic imaging of other specified body structures Status: Acute (8) ST elevation myocardial infarction (STEMI) Code(s): I21.3 - ST elevation (STEMI) myocardial infarction of unspecified site Status: Acute - Plan 1.) CAD - pod # 1 primary pci bms om3 and direct pci bms mid rca, assymptomatic , continue aspirin, effient, coreg, altace, lipitor, patient strongly advised to stop smoking 2.) Wide mediastinum on cxr - schedule cta chest today
[2018-03-05] MEDS ORDERED: Acetaminophen 325 MG Tablet PO PRN (21:18)
[2018-03-06 03:58] VITALS: TEMP 98.1
--- NOTE | 2018-03-06 07:05 | ECG ---
Date Performed: 03/04/2018 Time Performed: 16:17:15 PTAGE: 57 years EKG: Sinus rhythm ACUTE INFERIOR ST ELEVATION [place] WITH RECIPOCAL ANTERIOR ST DEPRESSION ARM LEADS REVERSED ST DEPRESSIO N, CONSIDER SUBENDOCARDIAL INJURY Clinical correlation is required ABNORMAL ECG NO PREVIOUS TRACING DOCTOR: Cheikh Gardner Interpretating Date/Time 03/06/2018 07:03:45
[2018-03-06] MEDS: Ramipril 2.5 MG Capsule PO SCH (08:45)
[2018-03-06 10:19] VITALS: RESP 18
[2018-03-06 11:41] VITALS: BP 117/79; O2SAT 98
--- NOTE | 2018-03-06 12:49 | CT ---
EXAM DATE: 03/06/2018 12:00 AM EDT AGE/SEX: 57 years / Male INDICATIONS: Substernal chest pain. CLINICAL DATA: This is the patient's initial encounter. Patient reports that signs and symptoms have been present for 1 day and indicates a pain score of 9/10. MEDICAL/SURGICAL HISTORY: Hypertension. Gastroesophageal reflux disease. Cholecystectomy. RADIATION DOSE: 8.96 CTDI (mGy) COMPARISON: No prior exams available for comparison. TECHNIQUE: Volumetric scanning was performed using a multi-row detector CT scanner during bolus infu adriane of 99 ml Omnipaque 350 (iohexol) nonionic water-soluble contrast as a single exam dose. The da ta was post processed with a variety of visualization algorithms including full volume maximum intens ity projection, multi-planar sliding thin slab reformation, curved planar reformation, and surface re ndering techniques. Using automated exposure control and adjustment of the mA and/or kV according to patient size, radiation dose was kept as low as reasonably achievable to obtain optimal diagnostic q uality images. DICOM format image data is available electronically for review and comparison. FINDINGS: Lungs: There is no consolidation or pneumothorax. No concerning pulmonary nodule is visualized. No pleural fluid is present. Mediastinum: No abnormally enlarged lymph nodes by CT criteria. No axillary or hilar abnormalities a re identified. Coronary artery calcifications are noted. Cardiomegaly is noted. Abdomen: The liver and spleen are free of focal defects. The gallbladder and pancreas demonstrate no abnormality. The adrenal glands are normal. The kidneys demonstrate no evidence of solid renal mass or hydronephrosis. No free fluid or abdominal masses are identified. No para-aortic adenopathy is see n. The appendix is normal. Degenerative changes and scoliosis of the thoracolumbar spine are noted. Pelvis: No evidence of free fluid or pelvic mass. No abnormally enlarged inguinal or retroperitoneal lymph nodes are present. The bladder is unremarkable. The prostate gland is mildly prominent. Thoracic Aorta: There is mild aneurysmal dilatation of the ascending thoracic aorta which measures 4 .4 cm transverse by 4.2 cm AP. No dissection is noted. Abdominal Aorta: The aorta is normal in caliber without aneurysm or dissection. The renal arteries are patent bilaterally. The proximal celiac and superior mesenteric arteries are patent and normal i n diameter. Pelvic Vessels: The internal iliac and external iliac vessels are patent without aneurysm or stenosi s. CONCLUSION: 1. Mild aneurysmal dilatation of the ascending thoracic aorta measuring 4.4 cm transverse by 4.2 cm AP. No aortic dissection is noted. 2. Cardiomegaly. 3. Coronary artery calcifications. 4. Degenerative changes and scoliosis of the thoracolumbar spine. Electronically signed by: Miquel Major MD 03/06/2018 12:47 PM EDT
[2018-03-06 14:06] VITALS: PULSE 81
--- NOTE | 2018-03-06 14:41 | P.PNCA ---
Subjective Interval history: assymptomatic in nad Medications and Allergies Active Medications: Active Medications Acetaminophen (Tylenol) 650 mg PO Q4H PRN PRN Reason: temp > 100.4/SOTO Last Admin: 03/05/18 21:59 Dose: 650 mg Aspirin (Aspirin Chew) 162 mg PO DAILY [facility] Last Admin: 03/06/18 08:45 Dose: 162 mg Atorvastatin Calcium (Lipitor) 10 mg PO HS [facility] Last Admin: 03/05/18 20:59 Dose: 10 mg Carvedilol (Coreg) 3.125 mg PO BID [facility] Last Admin: 03/06/18 08:46 Dose: 3.125 mg Tirofiban/Sodium Chloride (Aggrastat Inj) 12,500 mcg in 250 mls @ 0 mls/hr IV.CONT .Q0M [facility]; Protocol Prasugrel (Effient) 10 mg PO DAILY [facility] Last Admin: 03/06/18 08:45 Dose: 10 mg Ramipril (Altace) 2.5 mg PO DAILY [facility] Last Admin: 03/06/18 08:45 Dose: 2.5 mg Sodium Chloride (Ns Flush) 2 ml IV.FLUSH BID [facility] Last Admin: 03/06/18 08:46 Dose: 2 ml Sodium Chloride (Ns Flush) 2 ml IV.FLUSH PRN PRN PRN Reason: FLUSH AFTER USING IV ACCESS Allergies Allergy/AdvReac Type Severity Reaction Status Date / Time No Known Allergies Allergy Verified 03/04/18 17:18 Home Medications Medication Instructions Recorded Confirmed Type Unable to Obtain Home Meds 03/04/18 03/04/18 History Physical Exam Vital signs: Vital Signs 03/05/18 15:00 03/05/18 16:00 03/05/18 17:00 Temperature 98.3 F Pulse Rate 73 80 65 Respiratory Rate 16 Blood Pressure 120/88 Pulse Oximetry 96 03/05/18 17:25 03/05/18 18:00 03/05/18 19:00 Temperature 98.3 F Pulse Rate 75 67 Respiratory Rate 18 Blood Pressure 125/81 Pulse Oximetry 96 97 03/05/18 20:00 03/05/18 21:00 03/05/18 22:00 Temperature Pulse Rate 75 77 79 Respiratory Rate Blood Pressure Pulse Oximetry 03/05/18 22:32 03/05/18 23:00 03/06/18 00:00 Temperature 98.2 F Pulse Rate 70 64 Respiratory Rate 18 16 Blood Pressure 112/69 Pulse Oximetry 94 L 03/06/18 01:00 03/06/18 02:00 03/06/18 03:00 Temperature 98.1 F Pulse Rate 65 71 69 Respiratory Rate 17 Blood Pressure 113/73 Pulse Oximetry 95 03/06/18 04:00 03/06/18 05:00 03/06/18 06:00 Temperature Pulse Rate 83 65 60 Respiratory Rate Blood Pressure Pulse Oximetry 03/06/18 07:00 03/06/18 08:00 03/06/18 09:00 Temperature 98.1 F Pulse Rate 74 75 72 Respiratory Rate 18 Blood Pressure 109/70 Pulse Oximetry 96 03/06/18 10:00 03/06/18 11:00 03/06/18 12:00 Temperature Pulse Rate 73 73 76 Respiratory Rate 18 Blood Pressure 117/79 Pulse Oximetry 98 03/06/18 13:00 03/06/18 14:00 Temperature Pulse Rate 79 81 Respiratory Rate Blood Pressure Pulse Oximetry Intake & Output 03/05/18 03/06/18 03/06/18 18:59 06:59 18:59 Intake Total 1730 / 1730 1480 / 1480 Output Total 2165 / 2165 925 / 925 Balance -435 / -435 555 / 555 Weight 90 kg Intake: IV 250 / 250 1000 / 1000 NS Inj 1,000 ML @ 30 mls/hr IV. 1000 / 1000 SIG .Q24H DEB Rx#:[id number] Oral 1480 / 1480 480 / 480 Output: Urine 2165 / 2165 925 / 925 Other: Date of Last Bowel Movement 03/05/18 03/05/18 # Bowel Movements 1 Results 03/05/18 03:49 03/05/18 03:49 Cardiac Enzymes 03/04/18 03/04/18 03/05/18 Range/Units 16:24 16:24 03:49 AST 335 H (15-37) U/L CK-MB (CK-2) 26.3 H 406.3 H (0.5-3.6) ng/mL Troponin I 1.12 H* (0.02-0.05) ng/mL B-Natriuretic Peptide 15 (0-100) pg/mL Coagulation 03/04/18 03/04/18 Range/Units 16:24 16:24 PT 11.1 (9.8-11.6) sec APTT 20.2 L (24.3-30.1) sec B-Natriuretic Peptide 15 (0-100) pg/mL Lipids 03/05/18 Range/Units 03:49 Triglycerides 91 (42-150) mg/dL Cholesterol 179 (120-200) mg/dL HDL Cholesterol 45.5 (40.0-60.0) mg/dL Cholesterol/HDL Ratio 3.93 Ratio CBC 03/04/18 03/05/18 Range/Units 16:24 03:49 WBC 6.9 9.6 (4.0-11.0) th/mm3 RBC 6.52 H 6.32 H (4.50-5.90) mil/mm3 Hgb 19.4 H 18.3 H (13.0-17.0) gm/dL Hct 55.8 H 54.3 H (39.0-51.0) % Plt Count 179 178 (150-450) th/mm3 Neut # (Auto) 4.5 7.4 (1.8-7.7) th/mm3 Lymph # (Auto) 1.8 1.5 (1.0-4.8) th/mm3 [place] # (Auto) 0.6 0.6 (0.0-0.9) th/mm3 Eos # (Auto) 0.1 0.0 (0.0-0.4) th/mm3 Baso # (Auto) 0.0 0.0 (0.0-0.2) th/mm3 Comprehensive Metabolic Panel 03/04/18 03/05/18 Range/Units 16:24 03:49 Sodium 144 (136-145) meq/L Potassium 3.5 (3.5-5.1) meq/L Chloride 110 H (98-107) meq/L Carbon Dioxide 26.1 (21.0-32.0) meq/L BUN 12 (7-18) mg/dL Creatinine 1.03 (0.60-1.30) mg/dL Calcium 8.1 L 7.5 L (8.5-10.1) mg/dL Direct Bilirubin 0.4 H (0.0-0.2) mg/dL Indirect Bilirubin 1.8 H (0.0-0.8) mg/dL AST 335 H (15-37) U/L ALT 96 H (12-78) U/L Alkaline Phosphatase 64 (45-117) U/L Total Protein 6.2 L (6.4-8.2) g/dL Albumin 3.3 L (3.4-5.0) g/dL Intake and Output 03/05/18 03/06/18 03/06/18 22:59 06:59 14:59 Intake Total 1480 / 1480 1480 / 1480 Output Total 2165 / 2165 925 / 925 Balance -685 / -685 555 / 555 Intake: IV 1000 / 1000 NS Inj 1,000 ML @ 30 mls/hr IV. 1000 / 1000 SIG .Q24H DEB Rx#:[id number] Oral 1480 / 1480 480 / 480 Output: Urine 2165 / 2165 925 / 925 Other: Date of Last Bowel Movement 03/05/18 03/05/18 # Bowel Movements 1 Weight 90 kg - Imaging and Cardiology Imaging: Impressions Chest X-Ray 03/04/18 16:17 CONCLUSION: 1. Cardiomegaly. 2. Mediastinum is prominent. Consider contrasted CT chest. Thoracic Aorta CT 03/06/18 00:00 CONCLUSION: 1. Mild aneurysmal dilatation of the ascending thoracic aorta measuring 4.4 cm transverse by 4.2 cm AP. No aortic dissection is noted. 2. Cardiomegaly. 3. Coronary artery calcifications. 4. Degenerative changes and scoliosis of the thoracolumbar spine. Assessment and Plan - Assessment (1) CAD (coronary artery disease) Code(s): I25.10 - Atherosclerotic heart disease of [place] coronary artery without angina pectoris Status: Acute (2) CAD (coronary artery disease) Code(s): I25.10 - Atherosclerotic heart disease of [place] coronary artery without angina pectoris Status: Acute (3) Tobacco abuse Code(s): Z72.0 - Tobacco use Status: Acute (4) Tobacco abuse Code(s): Z72.0 - Tobacco use Status: Acute (5) HTN (hypertension) Code(s): I10 - Essential (primary) hypertension Status: Acute (6) Polycythemia Code(s): D75.1 - Secondary polycythemia Status: Acute (7) Mediastinal widening Code(s): R93.89 - Abnormal findings on diagnostic imaging of other specified body structures Status: Acute (8) ST elevation myocardial infarction (STEMI) Code(s): I21.3 - ST elevation (STEMI) myocardial infarction of unspecified site Status: Acute - Plan 1.) CAD - pod # 2 primary pci bms om3 and direct pci bms mid rca, assymptomatic , continue aspirin, effient, coreg, altace, lipitor, patient strongly advised to stop smoking; f/u with me 03/07/18 2.) Wide mediastinum on cxr - schedule cta chest today
--- NOTE | 2018-03-06 15:02 | P.PNIM ---
Subjective Interval history: The patient was resting comfortably in bed. He was looking forward to going home soon. He said that he did drink excessively prior to coming into the hospital. His family was at the bedside and their questions were answered. Discussed with nursing and cardiology. Physical Exam Vital signs: Vital Signs 03/05/18 15:00 03/05/18 16:00 03/05/18 17:00 Temperature 98.3 F Pulse Rate 73 80 65 Respiratory Rate 16 Blood Pressure 120/88 Pulse Oximetry 96 03/05/18 17:25 03/05/18 18:00 03/05/18 19:00 Temperature 98.3 F Pulse Rate 75 67 Respiratory Rate 18 Blood Pressure 125/81 Pulse Oximetry 96 97 03/05/18 20:00 03/05/18 21:00 03/05/18 22:00 Temperature Pulse Rate 75 77 79 Respiratory Rate Blood Pressure Pulse Oximetry 03/05/18 22:32 03/05/18 23:00 03/06/18 00:00 Temperature 98.2 F Pulse Rate 70 64 Respiratory Rate 18 16 Blood Pressure 112/69 Pulse Oximetry 94 L 03/06/18 01:00 03/06/18 02:00 03/06/18 03:00 Temperature 98.1 F Pulse Rate 65 71 69 Respiratory Rate 17 Blood Pressure 113/73 Pulse Oximetry 95 03/06/18 04:00 03/06/18 05:00 03/06/18 06:00 Temperature Pulse Rate 83 65 60 Respiratory Rate Blood Pressure Pulse Oximetry 03/06/18 07:00 03/06/18 08:00 03/06/18 09:00 Temperature 98.1 F Pulse Rate 74 75 72 Respiratory Rate 18 Blood Pressure 109/70 Pulse Oximetry 96 03/06/18 10:00 03/06/18 11:00 03/06/18 12:00 Temperature Pulse Rate 73 73 76 Respiratory Rate 18 Blood Pressure 117/79 Pulse Oximetry 98 03/06/18 13:00 03/06/18 14:00 Temperature Pulse Rate 79 81 Respiratory Rate Blood Pressure Pulse Oximetry Intake & Output 03/05/18 03/06/18 03/06/18 18:59 06:59 18:59 Intake Total 1730 / 1730 1480 / 1480 Output Total 2165 / 2165 925 / 925 Balance -435 / -435 555 / 555 Weight 90 kg Intake: IV 250 / 250 1000 / 1000 NS Inj 1,000 ML @ 30 mls/hr IV. 1000 / 1000 SIG .Q24H DEB Rx#:[id number] Oral 1480 / 1480 480 / 480 Output: Urine 2165 / 2165 925 / 925 Other: Date of Last Bowel Movement 03/05/18 03/05/18 # Bowel Movements 1 Narrative: GENERAL: No distress. SKIN: Warm and dry, no rashes. HEAD: Atraumatic. Normocephalic. EYES: Pupils equal, round, reactive to light. No scleral icterus. No injection or drainage. ENT: No nasal bleeding or discharge. Moist mucous membranes. Nonerythematous oropharynx. NECK: Trachea midline. No JVD. Thyroid size within normal limits. CARDIOVASCULAR: Regular rate and rhythm. No murmurs. RESPIRATORY: Clear and equal to auscultation bilaterally. No crackles, no wheezes. No accessory muscle use. GASTROINTESTINAL: Abdomen soft, non-tender, nondistended, normal active bowel sounds. Hepatic and splenic margins not palpable. MUSCULOSKELETAL: Extremities without clubbing or cyanosis. No obvious deformities. No edema. NEUROLOGICAL: Awake and alert. No obvious cranial nerve deficits. Motor grossly within normal limits. No focal deficits. Five out of 5 muscle strength in the arms and legs. Normal speech. PSYCHIATRIC: Appropriate mood and affect; insight and judgment normal. Results - Labs CBC & Chem 7: 03/05/18 03:49 03/05/18 03:49 - Imaging Impressions Thoracic Aorta CT 03/06/18 00:00 CONCLUSION: 1. Mild aneurysmal dilatation of the ascending thoracic aorta measuring 4.4 cm transverse by 4.2 cm AP. No aortic dissection is noted. 2. Cardiomegaly. 3. Coronary artery calcifications. 4. Degenerative changes and scoliosis of the thoracolumbar spine. Assessment and Plan - Plan NSTEMI Patient presented with crushing chest pain, taken to heart catheterization, 2 areas stented 03/04/18 (bms om3 and direct pci bms mid rca). Patient is now symptom-free. -follow up with cardiology 03/07/18. -continue cardiac regimen including Prasugrel, ASA, ACEi, beta alex and statin. GERD Protonix while he is here, resume Prilosec at home Polycythemia Encourage good hydration daily Elevated LFTs Likely s/t heavy alcohol intake prior to admission. -repeat LFTs as an outpt to ensure improvement. PPx: Per cardiology Discharge Planning: D/c home
--- NOTE | 2018-03-06 15:19 | P.PNIM ---
Physical Exam Vital signs: Vital Signs 03/05/18 16:00 03/05/18 17:00 03/05/18 17:25 Temperature Pulse Rate 80 65 Respiratory Rate Blood Pressure Pulse Oximetry 96 03/05/18 18:00 03/05/18 19:00 03/05/18 20:00 Temperature 98.3 F Pulse Rate 75 67 75 Respiratory Rate 18 Blood Pressure 125/81 Pulse Oximetry 97 03/05/18 21:00 03/05/18 22:00 03/05/18 22:32 Temperature Pulse Rate 77 79 Respiratory Rate 18 Blood Pressure Pulse Oximetry 03/05/18 23:00 03/06/18 00:00 03/06/18 01:00 Temperature 98.2 F Pulse Rate 70 64 65 Respiratory Rate 16 Blood Pressure 112/69 Pulse Oximetry 94 L 03/06/18 02:00 03/06/18 03:00 03/06/18 04:00 Temperature 98.1 F Pulse Rate 71 69 83 Respiratory Rate 17 Blood Pressure 113/73 Pulse Oximetry 95 03/06/18 05:00 03/06/18 06:00 03/06/18 07:00 Temperature 98.1 F Pulse Rate 65 60 74 Respiratory Rate 18 Blood Pressure 109/70 Pulse Oximetry 96 03/06/18 08:00 03/06/18 09:00 03/06/18 10:00 Temperature Pulse Rate 75 72 73 Respiratory Rate Blood Pressure Pulse Oximetry 03/06/18 11:00 03/06/18 12:00 03/06/18 13:00 Temperature Pulse Rate 73 76 79 Respiratory Rate 18 Blood Pressure 117/79 Pulse Oximetry 98 03/06/18 14:00 Temperature Pulse Rate 81 Respiratory Rate Blood Pressure Pulse Oximetry Intake & Output 03/05/18 03/06/18 03/06/18 18:59 06:59 18:59 Intake Total 1730 / 1730 1480 / 1480 Output Total 2165 / 2165 925 / 925 Balance -435 / -435 555 / 555 Weight 90 kg Intake: IV 250 / 250 1000 / 1000 NS Inj 1,000 ML @ 30 mls/hr IV. 1000 / 1000 SIG .Q24H DEB Rx#:[id number] Oral 1480 / 1480 480 / 480 Output: Urine 2165 / 2165 925 / 925 Other: Date of Last Bowel Movement 03/05/18 03/05/18 # Bowel Movements 1 Results - Labs CBC & Chem 7: 03/05/18 03:49 03/05/18 03:49 - Imaging Impressions Thoracic Aorta CT 03/06/18 00:00 CONCLUSION: 1. Mild aneurysmal dilatation of the ascending thoracic aorta measuring 4.4 cm transverse by 4.2 cm AP. No aortic dissection is noted. 2. Cardiomegaly. 3. Coronary artery calcifications. 4. Degenerative changes and scoliosis of the thoracolumbar spine. Assessment and Plan - Plan NSTEMI Patient presented with crushing chest pain, taken to heart catheterization, 2 areas stented 03/04/18 (bms om3 and direct pci bms mid rca) Patient is now symptom-free and asking when he might go home Appreciate timely cardiology intervention GERD Protonix while he is here, resume Prilosec at home Polycythemia Encourage good hydration daily PPx:
== END 2018-03-06 16:39 | disposition home or self-care (01) ==
LOC: NEPC 16:15 → NEDA 16:35 → HCVI 18:00 → HCIS 03-05 07:10
PROVIDERS: ADMIT Hospitalist; ATTEND Hospitalist